=== PATIENT | male | born 1970 | race Caucasian/White ===

== ENCOUNTER 2016-09-26 10:55 | Emergency (ER) | payer MEDICAID ==
[~2016-09-26] VITALS: Wt 90.0 kg
[2016-09-26] MEDS ORDERED: LIDOCAINE 1%/EPI 30 ML INJ ONE (11:22)
[2016-09-26] MEDS ORDERED: LIDOCAINE 1%/EPI (MDV) 20 ML INJ SC ONE (11:30)
[2016-09-26] MEDS ORDERED: BACTDS PO (11:31)
[2016-09-26] MEDS ORDERED: CEPH-443 PO (11:31)
[2016-09-26] MEDS ORDERED: HYDR-902 PO (11:31)
--- NOTE | 2016-09-26 13:50 | ERD ---
ER Documentation Chief Complaint Date/Time DATE: 09/26/16 TIME: 13:43 Chief Complaint left lower leg redness and abscess with drainage. HPI Patient is a 38-year-old male with no medical problems who presents with a " left leg infection". He has swelling and redness to the left calf. He twisted his ankle in June and I put an Toño wrap on his ankle which was too tight. He said this was when the infection started. He has had no fevers. He has had no treatment as of yet. He does not currently have a primary doctor. Upon review of old medical records this is the patient's first visit to the emergency department. ROS All systems reviewed and are negative except as per history of present illness. Medications Home Meds Active Scripts Hydrocodone/Acetaminophen ([place] 10-325 Tablet) 1 Each Tablet, 1 TAB PO Q6H Y for PAIN, #7 TAB Prov:DESTIN ANTHONY MD 09/26/16 Cephalexin* (Keflex*) 500 Mg Capsule, 500 MG PO QID for 7 Days, CAP Prov:DESTIN ANTHONY MD 09/26/16 Sulfamethoxazole-Trimethoprim* (Bactrim* DS) 800-160 Mg Tab, 1 TAB PO BID for 7 Days, TAB Prov:DESTIN ANTHONY MD 09/26/16 PMhx/Soc Medical and Surgical Hx: pt denies Medical Hx, pt denies Surgical Hx Hx Alcohol Use: No Hx Substance Use: No Hx Tobacco Use: No FmHx Family History: diabetes Physical Exam Vitals Vital Signs Date Time Temp Pulse Resp B/P Pulse Ox O2 Delivery O2 Flow Rate FiO2 09/26/16 11:01 98.1 91 20 150/89 98 Physical Exam Const: No acute distress Head: Atraumatic Eyes: Normal Conjunctiva ENT: Normal External Ears, Nose and Mouth. Neck: Full range of motion..~ No meningismus. Resp: Clear to auscultation bilaterally Cardio: Regular rate and rhythm, no murmurs Abd: Soft, non tender, non distended. Normal bowel sounds Skin: Fluctuance 4 x 4 centimeters to the left calf with surrounding erythema consistent with abscess Back: No midline or flank tenderness Ext: No cyanosis, or edema Neur: Awake and alert Psych: Normal Mood and Affect Results 24 hrs Current Medications Medications (Trade) Dose Ordered Sig/Matilda Route PRN Reason Start Time Stop Time Status Last Admin Dose Admin Lidocaine/ Epinephrine (Xylocaine 1%/ Epi (Mdv) 20 ml) 20 ml ONCE ONCE SC 09/26/16 11:30 09/26/16 11:31 DC Lidocaine/ Epinephrine (Xylocaine 1%/ Epi) 30 ml STK-MED ONCE .ROUTE 09/26/16 11:22 09/26/16 11:23 DC Procedures/MDM Abscess Incision and Drainage with irrigation by me: Location: Left calf Anesthesia: Local 1% Lidocaine with epinephrine Technique: Irrigated. Disrupted loculations w/ instrumentation Packing: None Complications: Neurovascularly intact post procedure 48 hour wound check. Scar minimization instructions given. ED Ultrasound: Abscess localized by me using concurrent ultrasound guidance and assessment of the anatomy. Real time image archived in the medical record confirms anatomy. Patient's skin symptoms have stabilized while they have been evaluated in the department and are appropriate for outpatient care and work up. Exam and w/u not consistent w/ sepsis, deep space infection, or foreign body. Patient will be given a prescription for Bactrim and Keflex but will need to follow-up closely with a local clinics. At this point I do not think he requires admission to the hospital but if this worsens he could return. He feels much better after the incision and drainage. Departure Diagnosis: Primary Impression: Abscess Condition: Fair Patient Instructions: Abscess, Incision And Drainage [facility] Usted se sweet hecho un examen mdico de control que le indica que no est en kev condicin que requiera tratamiento urgente en el Departamento de Emergencia. Un estudio ms profundo y el tratamiento de brady condicin pueden esperar sin ningn riesgo hasta que usted sea atendida/o en el consultorio de rbady mdico o kev cl мария. Es responsabilidad suya arreglar kev tad para el seguimiento del robin. MANEJO DE CONDICIONES NO URGENTES EN EL FUTURO 1) Si usted tiene un mdico de atencin primaria: Usted debera llamar a brady mdico de atencin primaria antes de venir al departamento de emergencia. Despus de las horas de consultorio, brady doctor o brady asociado/a est disponible por telfono. El mdico o enfermero de augustine en el servicio telefnico puede asesorarle por cole medio para atender el problema, o robin contrario se puede programar kev tad. 2) Si usted no tiene un mdico de atencin primaria: Llame al mdico o clnica de referencia que aparece abajo samson las horas de consultorio para hacer kev tad para que le vean. CLINICAS: [facility] [phone] [facility] [phone] [address] [facility]. [facility] [phone] [address] [facility] [place] [phone] [facility] [place] [id number] [phone] [facility] [phone] [address] Additional Instructions: Llame al doctor MAANA y isrrael kev TAD PARA DENTRO DE 1-2 LINDA.Dgale a la secretaria que nosotros le instruimos hacer esta tad.Avise o llame si brady condicin se empeora antes de la tad. Regresa aqui si peor o no mejor. DESTIN ANTHONY MD Sep 26, 2016 13:50
== END 2016-09-26 12:17 | disposition home or self-care (01) ==
LOC: EDBD 10:55 → E/R 10:55
DX: L02.416 Cutaneous abscess of left lower limb (principal)
CPT/HCPCS: 10061; Z7502; Z7610

== ENCOUNTER 2016-09-28 19:32 | Emergency (ER) | payer MEDICAID ==
[~2016-09-28] VITALS: Ht 175.3 cm; Wt 89.4 kg
[~2016-09-28 19:32] MED LIST: BACTDS PO; CEPH-443 PO; HYDR-902 PO
[2016-09-28 19:56] VITALS: Ht 175.3 cm; Wt 89.4 kg
[2016-09-28] MEDS ORDERED: LIDOCAINE 2% (MDV) 20 ML INJ INJ ONE (21:30)
[2016-09-28] MEDS ORDERED: CEFTRIAXONE 1 GM/50 ML (PMX) 50 ML IVPB ONE (21:30)
[2016-09-28] MEDS ORDERED: BACITRACIN 0.9 GM OINT TOP ONE (21:30)
[2016-09-28] MEDS ORDERED: CEFTRIAXONE 1 GM INJ IM ONE (22:00)
[2016-09-28] MEDS ORDERED: BACITUD TOP (22:41)
--- NOTE | 2016-09-28 22:49 | ERD ---
ER Documentation Chief Complaint Date/Time DATE: 09/28/16 TIME: 22:44 Chief Complaint wound check left lower leg, requesting dressing change HPI This is a 46-year-old male presents to the ER for recheck of his left lower leg. Patient had an incision and drainage done 2 days ago. He has been taking his antibiotics. Patient denies any pain to the leg. He denies any fevers or chills. Patient had this infection for about 2 months before he came to the ER for treatment. ROS 12 point review of systems was done, all negative except per HPI. Medications Home Meds Active Scripts Bacitracin* (Bacitracin Oint (UD)*) 1 Applic Oint, 1 APPLIC TOP ONCE for 4 Days , PKT APPLY TO Prov:AMADA BERGERON 09/28/16 Hydrocodone/Acetaminophen ([place] 10-325 Tablet) 1 Each Tablet, 1 TAB PO Q6H Y for PAIN, #7 TAB Prov:DESTIN ANTHONY MD 09/26/16 Cephalexin* (Keflex*) 500 Mg Capsule, 500 MG PO QID for 7 Days, CAP Prov:DESTIN ANTHONY MD 09/26/16 Sulfamethoxazole-Trimethoprim* (Bactrim* DS) 800-160 Mg Tab, 1 TAB PO BID for 7 Days, TAB Prov:DESTIN ANTHONY MD 09/26/16 Allergies Allergies: Coded Allergies: No Known Allergy (Unverified , 09/28/16) PMhx/Soc Medical and Surgical Hx: pt denies Medical Hx, pt denies Surgical Hx History of Surgery: No Anesthesia Reaction: No Hx Neurological Disorder: No Hx Respiratory Disorders: No Hx Cardiac Disorders: No Hx Psychiatric Problems: No Hx Alcohol Use: No Hx Substance Use: Yes (Used THC ) Hx Tobacco Use: Yes Smoking Status: Current every day smoker Physical Exam Vitals Vital Signs Date Time Temp Pulse Resp B/P Pulse Ox O2 Delivery O2 Flow Rate FiO2 09/28/16 19:56 98.3 87 20 141/79 100 Physical Exam GENERAL: The patient is well developed and appropriate for usual state of health , in no apparent distress. HEENT: Atraumatic. CHEST: Clear to auscultation bilaterally. There are no rales, wheezes or rhonchi. HEART: Regular rate and rhythm. No murmurs, clicks, rubs or gallops. ABDOMEN: Soft, nontender and nondistended. Good bowel sounds. No rebound or guarding. No gross peritonitis. No gross organomegaly or masses. No Hightower sign or McBurney point tenderness. BACK: No midline or flank tenderness. EXTREMITIES: Equal pulses bilaterally. There is no peripheral clubbing, cyanosis or edema. No focal swelling or erythema. Full range of motion. Grossly neurovascularly intact. NEURO: Alert and oriented. Cranial nerves II through XII are intact. Motor strength in all 4 extremities with 5/5 strength. Sensation grossly intact. Normal speech and gait. SKIN: There is a 4cm* 3cm wound on the left lower leg with surrounding erythema. no pain no discharge Results 24 hrs Current Medications Medications (Trade) Dose Ordered Sig/Maitlda Route PRN Reason Start Time Stop Time Status Last Admin Dose Admin Ceftriaxone Sodium (Rocephin) 50 ml @ 100 mls/hr ONCE ONCE IVPB 09/28/16 21:30 09/28/16 21:53 DC Lidocaine (Xylocaine 2% (Mdv) 20 ml) 20 ml ONCE ONCE INJ 09/28/16 21:30 09/28/16 21:32 DC 09/28/16 22:01 Bacitracin (Bacitracin Oint (Ud)) 1 applic ONCE ONCE TOP 09/28/16 21:30 09/28/16 21:32 DC Ceftriaxone Sodium (Rocephin) 1 gm ONCE ONCE IM 09/28/16 22:00 09/28/16 22:01 DC 09/28/16 22:01 Procedures/MDM This patient was examined by myself and by Dr. Fajardo, patient's wound is healing appropriately. Patient's wound however is large and there is some surrounding erythema. He is afebrile pain-free and well-appearing. He will be given a dose of Rocephin. He was told to continue with his antibiotics. Wound was irrigated with copious amounts of normal saline and dressed with bacitracin. Patient is neurovascularly intact he has normal range of motion of his leg. He will be sent home with bacitracin. Patient needs to follow-up with this [facility] doctor within 1-2 days return here in 48 hours for wound check. My Medical decision making was shared with the patient he understands and agrees with plan. Departure Diagnosis: Primary Impression: Encounter for wound re-check Condition: Stable Patient Instructions: Wound Care Additional Instructions: Regrese a estas instalaciones dentro de [facility] [place]MER para un examen de seguimiento.Regrese antes si brady condicin se empeora. AMADA BERGERON Sep 28, 2016 22:49
== END 2016-09-28 23:48 | disposition home or self-care (01) ==
LOC: FTE 19:32
DX: Z48.01 Encounter for change or removal of surgical wound dressing (principal); F17.210 Nicotine dependence, cigarettes, uncomplicated
CPT/HCPCS: 96372; J0696; Z7502; Z7610